=== PATIENT | female | born 1990 | race Caucasian/White ===

== ENCOUNTER 2021-03-31 03:56 | Emergency (ER) | payer OTHER ==
[~2021-03-31] VITALS: Ht 160 cm; Wt 63.5 kg
[2021-03-31] MEDS ORDERED: NEURONTIN300 MG (04:01)
== END 2021-03-31 06:49 | disposition home or self-care (01) ==
LOC: ER 03:56
DX: O21.0 Mild hyperemesis gravidarum (principal); Z34.01 Encounter for supervision of normal first pregnancy, first trimester